=== PATIENT | male | born 1965 | race Caucasian/White ===

== ENCOUNTER 2022-02-17 12:01 | Inpatient (IN) | payer SELFPAY ==
[2022-02-17 12:29] LABS: #Lymphocytes 0.7 thou/uL (1.20-3.40); #Monocytes 1.1 thou/uL (0.11-0.59); #Neutrophils 10.6 thou/uL (1.40-6.50); %Basophils 0.1 % (0.0-1.0); %Lymphocytes 5.5 % (21.0-51.0); %Monocytes 9.1 % (0.0-10.0); %Neutrophils 85.3 % (42.0-75.0); Hemoglobin 16.5 g/dL (14.0-18.0); Mean Corpuscular HGB CONC 33.2 g/dL (32.0-36.0); Mean Corpuscular Hemoglobin 33.5 pg (27.0-31.0); Mean Platelet Volume 8.1 fL (7.4-10.4); Platelet Count 142 thou/uL (130-400); RBC Distribution Width 11.5 % (11.5-14.5); Red Blood Cell (RBC) Count 4.93 mill/uL (4.70-6.10); White Blood Cell (WBC) Count 12.4 thou/uL (4.8-10.8)
[2022-02-17 12:48] LABS: ALT (SGPT) 9 U/L (8-55); AST (SGOT) 17 U/L (5-34); Albumin 4.1 g/dL (3.5-5.0); Alkaline Phosphatase 67 U/L (40-110); Anion Gap 14 mmol/L (10-20); BUN (Urea Nitrogen) 18 mg/dL (8.4-25.7); Bilirubin, Total 0.8 mg/dL (0.2-1.2); Calc. Creatinine Clearance 0 mL/min (70-130); Calcium 8.6 mg/dL (7.8-10.44); Carbon Dioxide 22 mmol/L (22-29); Chloride 107 mmol/L (98-107); Globulin 2.6 g/dL (2.4-3.5); Glucose 105 mg/dL (70-105); Potassium 3.8 mmol/L (3.5-5.1); Protein, Total 6.7 g/dL (6.0-8.3); Sodium 139 mmol/L (136-145)
[2022-02-17] MEDS ORDERED: Ketorolac Tromethamine 30 MG/ML VIAL ONE (13:38)
[2022-02-17 13:54] LABS: Bacteria/HPF 4+ HPF (None Seen); Bilirubin Negative (Negative); Blood, Urine 3+ (Negative); Clarity Turbid (Clear); Glucose, Urine (Dipstick) Normal (Negative); Ketone, Urine 20 mg/dL (Negative); Leukocyte 500 Leu/uL (Negative); Nitrite Negative (Negative); Protein, Urine (Dipstick) 100 mg/dL (Neg-Trace); RBC/HPF Greater than 50 HPF (0-3); Specific Gravity, Urine 1.023 (1.002-1.036); Squamous Epithelial 0-3 HPF (0-3); Urobilinogen Normal mg/dL (Less than 2); WBC/HPF Greater than 50 HPF (0-3); pH, Urine 5.5 (5.0-9.0)
[2022-02-17] MEDS ORDERED: Ondansetron ODT 4 MG TAB PO PRN (15:35)
[2022-02-17] MEDS ORDERED: Ondansetron PF 4 MG/2 ML Vial IVP PRN (15:35)
[2022-02-17] MEDS ORDERED: Acetaminophen 325 MG TAB PO PRN (15:35)
[2022-02-17] MEDS ORDERED: Ketorolac Tromethamine 30 MG/ML VIAL IVP PRN (15:44)
[2022-02-17 17:04] LABS: SARS-CoV-2 NAA Rapid Test Not Detected (NotDetected)
[2022-02-17] MEDS ORDERED: Iopamidol 15 ML ONE (17:32)
[2022-02-17] MEDS ORDERED: fentaNYL Citrate/PF 100 MCG/2 ML SYRINGE ONE (17:59)
[2022-02-17] MEDS ORDERED: Lidocaine 1% PF 5 ML VIAL ONE (18:02)
[2022-02-17] MEDS ORDERED: PHENYLEPHRINE-NS 100 MCG/ML 10 ML SYRINGE ONE (18:02)
[2022-02-17] MEDS ORDERED: Dexamethasone 20 MG/5 ML VIAL ONE (18:02)
[2022-02-17] MEDS ORDERED: Ondansetron PF 4 MG/2 ML Vial ONE (18:02)
[2022-02-17] MEDS ORDERED: PROPOFOL 200 MG/20 ML VIAL ONE (18:02)
[2022-02-17] MEDS ORDERED: HYDROmorphone 2 MG/ML VIAL SLOW IVP PRN (18:52)
[2022-02-17] MEDS ORDERED: Promethazine HCl 25 MG/ML VIAL IVPB PRN (18:52)
[2022-02-17] MEDS ORDERED: Ondansetron HCl/PF 4 MG/2 ML Vial IVP PRN (18:52)
[2022-02-17] MEDS ORDERED: PACU-Morphine 4MG/ML VIAL SLOW IVP PRN (18:52)
[2022-02-17] MEDS ORDERED: Promethazine HCl 25 MG/ML VIAL IM PRN (18:52)
[2022-02-18 06:15] LABS: #Lymphocytes 0.6 thou/uL (1.20-3.40); #Monocytes 0.4 thou/uL (0.11-0.59); #Neutrophils 8.3 thou/uL (1.40-6.50); %Basophils 0.1 % (0.0-1.0); %Neutrophils 89.9 % (42.0-75.0); Hemoglobin 14.2 g/dL (14.0-18.0); Mean Corpuscular HGB CONC 33.6 g/dL (32.0-36.0); Mean Corpuscular Hemoglobin 33.7 pg (27.0-31.0); Mean Platelet Volume 8.1 fL (7.4-10.4); Platelet Count 144 thou/uL (130-400); RBC Distribution Width 11.4 % (11.5-14.5); Red Blood Cell (RBC) Count 4.21 mill/uL (4.70-6.10); White Blood Cell (WBC) Count 9.2 thou/uL (4.8-10.8)
[2022-02-18 06:58] LABS: ALT (SGPT) 9 U/L (8-55); AST (SGOT) 16 U/L (5-34); Albumin 3.7 g/dL (3.5-5.0); Alkaline Phosphatase 56 U/L (40-110); Anion Gap 13 mmol/L (10-20); BUN (Urea Nitrogen) 20 mg/dL (8.4-25.7); Bilirubin, Total 0.8 mg/dL (0.2-1.2); Calc. Creatinine Clearance 97 mL/min (70-130); Calcium 8.3 mg/dL (7.8-10.44); Carbon Dioxide 23 mmol/L (22-29); Chloride 106 mmol/L (98-107); Globulin 2.4 g/dL (2.4-3.5); Glucose 109 mg/dL (70-105); Potassium 3.9 mmol/L (3.5-5.1); Protein, Total 6.1 g/dL (6.0-8.3); Sodium 138 mmol/L (136-145)
[2022-02-18 12:24] VITALS: TEMP 97.4
[2022-02-18 17:33] VITALS: BP 106/67
== END 2022-02-18 18:13 | disposition home or self-care (01) | DRG 854 ==
LOC: ERS 12:01 → T4-A 18:45
PROVIDERS: ADMIT Family Medicine; ATTEND Family Medicine
PROC: 0T778DZ Dilation of Left Ureter with Intraluminal Device, Via Natural or Artificial Opening Endoscopic (ICD-10-PCS; principal; 2022-02-17)
DX: A41.9 Sepsis, unspecified organism (principal); N13.6 Pyonephrosis; Z20.822 Contact with and (suspected) exposure to COVID-19; R33.9 Retention of urine, unspecified; F17.210 Nicotine dependence, cigarettes, uncomplicated; E86.0 Dehydration; Z88.0 Allergy status to penicillin; Z88.1 Allergy status to other antibiotic agents; Z88.5 Allergy status to narcotic agent; Z79.899 Other long term (current) drug therapy; Z86.73 Personal history of transient ischemic attack (TIA), and cerebral infarction without residual deficits
CPT/HCPCS: 36415; 51701; 74176; 74420; 80053; 81003; 81015; 82340; 84145; 85025; 87040; 87077; 87086; 96365; 96375; C2617; J1100; J1885; J1956; J2405; J2704; Q9967; U0002

== ENCOUNTER 2022-03-16 09:27 | Day surgery (SDC) | payer OTHER ==
[2022-03-15 14:00] VITALS: BMI 24.0
[2022-03-16 11:22] LABS: SARS-CoV-2 NAA Rapid Test Not Detected (NotDetected)
[2022-03-16] MEDS ORDERED: Midazolam HCl 2 mg/2 ml Vial ONE ×2 (11:30→14:50)
[2022-03-16] MEDS ORDERED: fentaNYL Citrate/PF 100 MCG/2 ML SYRINGE ONE (11:30)
[2022-03-16] MEDS ORDERED: Iopamidol 30 ML ONE (11:42)
[2022-03-16] MEDS ORDERED: Levofloxacin 500 mg/D5W 100 ml Premix Bag ONE (12:11)
[2022-03-16] MEDS ORDERED: Ondansetron PF 4 MG/2 ML Vial ONE (12:24)
[2022-03-16] MEDS ORDERED: Dexamethasone 20 MG/5 ML VIAL ONE (12:24)
[2022-03-16] MEDS ORDERED: Glycopyrrolate 0.2 MG/ML 5 ML SYRINGE ONE (12:24)
[2022-03-16] MEDS ORDERED: EPINEPHrine 1 MG/10 ML Abboject SYRINGE ONE ×2 (12:24→14:47)
[2022-03-16] MEDS ORDERED: PHENYLEPHRINE-NS 100 MCG/ML 10 ML SYRINGE ONE (12:24)
[2022-03-16] MEDS ORDERED: Rocuronium Bromide 10 MG/ML (10ML VIAL) ONE (12:24)
[2022-03-16] MEDS ORDERED: PROPOFOL 200 MG/20 ML VIAL ONE (12:24)
[2022-03-16] MEDS ORDERED: Ketorolac Tromethamine 30 MG/ML VIAL ONE (12:24)
[2022-03-16] MEDS ORDERED: Lidocaine 1% PF 5 ML VIAL ONE (12:24)
[2022-03-16] MEDS ORDERED: Metoclopramide HCl 10 MG/2 ML VIAL ONE (12:24)
[2022-03-16] MEDS ORDERED: Racepinephrine 2.25% 0.5 ML NEB ONE (14:38)
[2022-03-16] MEDS ORDERED: Sodium Chloride For Inhalation 0.9% 3 ML NEB ONE (14:38)
[2022-03-16] MEDS ORDERED: Albuterol Sulfate 1.25 MG/3 ML NEB ONE (14:49)
[2022-03-16] MEDS ORDERED: Ketamine 50 MG/ML (10ML VIAL) ONE (14:50)
== END 2022-03-16 19:09 | disposition home or self-care (01) ==
LOC: SDC 09:27
PROVIDERS: ATTEND Urology
PROC: 0TC78ZZ Extirpation of Matter from Left Ureter, Via Natural or Artificial Opening Endoscopic (ICD-10-PCS; principal; 2022-03-16)
PROC: 0TC48ZZ Extirpation of Matter from Left Kidney Pelvis, Via Natural or Artificial Opening Endoscopic (ICD-10-PCS; principal; 2022-03-16)
PROC: 0T778DZ Dilation of Left Ureter with Intraluminal Device, Via Natural or Artificial Opening Endoscopic (ICD-10-PCS; principal; 2022-03-16)
PROC: 0TCB8ZZ Extirpation of Matter from Bladder, Via Natural or Artificial Opening Endoscopic (ICD-10-PCS; principal; 2022-03-16)
DX: N20.2 Calculus of kidney with calculus of ureter (principal); N21.0 Calculus in bladder; F17.210 Nicotine dependence, cigarettes, uncomplicated; Z86.73 Personal history of transient ischemic attack (TIA), and cerebral infarction without residual deficits; Z88.0 Allergy status to penicillin; Z88.1 Allergy status to other antibiotic agents; Z88.5 Allergy status to narcotic agent; Z20.822 Contact with and (suspected) exposure to COVID-19
CPT/HCPCS: 71045; 76000; C1713; C2617; J0171; J1100; J1885; J1956; J2250; J2405; J2704; J2765; J7620; Q9967; U0002

== ENCOUNTER 2023-07-08 00:26 | Inpatient (IN) | payer SELFPAY ==
[2023-07-08] MEDS ORDERED: fentaNYL 50 mcg/mL 1 mL Vial ONE (01:21)
[2023-07-08] MEDS ORDERED: Ondansetron PF 4 MG/2 ML Vial ONE ×2 (01:21→10:00)
[2023-07-08 01:22] LABS: #Eosinphils 0.1 thou/uL (0.0-0.7); #Monocytes 0.9 thou/uL (0.11-0.59); #Neutrophils 10.1 thou/uL (1.40-6.50); %Basophils 0.3 % (0.0-1.0); %Eosinophils 0.9 % (0.0-10.0); %Lymphocytes 10.5 % (21.0-51.0); %Monocytes 7.1 % (0.0-10.0); %Neutrophils 80.8 % (42.0-75.0); Hematocrit 44.6 % (42.0-52.0); Mean Corpuscular HGB CONC 33.6 g/dL (32.0-36.0); Mean Corpuscular Hemoglobin 33.3 pg (27.0-31.0); Mean Corpuscular Volume 98.9 fl (78.0-98.0); Mean Platelet Volume 10.8 fL (7.4-10.4); Platelet Count 156 10x3/uL (130-400); Red Blood Cell (RBC) Count 4.51 mill/uL (4.70-6.10); White Blood Cell (WBC) Count 12.5 10x3/uL (4.8-10.8)
[2023-07-08 01:51] LABS: ALT (SGPT) 13 U/L (8-55); AST (SGOT) 16 U/L (5-34); Albumin 4.4 g/dL (3.5-5.0); Alkaline Phosphatase 60 U/L (40-110); Anion Gap 18 mmol/L (10-20); BUN (Urea Nitrogen) 18 mg/dL (8.4-25.7); Bilirubin, Total 0.4 mg/dL (0.2-1.2); Calc. Creatinine Clearance 0 mL/min (70-130); Calcium 8.6 mg/dL (7.8-10.44); Carbon Dioxide 21 mmol/L (22-29); Chloride 106 mmol/L (98-107); Estimated GFR 55; Globulin 2.6 g/dL (2.4-3.5); Glucose 156 mg/dL (70-105); Lipase 31 U/L (8-78); Sodium 142 mmol/L (136-145)
[2023-07-08] MEDS ORDERED: Cefepime 2 GM VIAL ONE (03:18)
[2023-07-08 03:51] LABS: PTT 26.8 sec (22.9-36.1); Prothrombin Time 13.9 sec (12.0-14.7)
[2023-07-08 03:59] LABS: Bilirubin Negative (Negative); Blood, Urine Trace (Negative); CAUTI Indications for Culture < 2yrs of age; Clarity Clear (Clear); Glucose, Urine (Dipstick) Normal (Negative); Ketone, Urine Negative (Negative); Leukocyte 250 Leu/uL (Negative); Nitrite 2+ (Negative); Protein, Urine (Dipstick) 30 mg/dL (Neg-Trace); RBC/HPF 21-50 HPF (0-3); Specific Gravity, Urine 1.022 (1.002-1.036); Squamous Epithelial None Seen HPF (0-3); Urobilinogen Normal mg/dL (Less than 2); WBC/HPF Greater than 50 HPF (0-3); pH, Urine 6.5 (5.0-9.0)
[2023-07-08 04:00] LABS: Bacteria/HPF 1+ HPF (None Seen)
[2023-07-08 04:01] LABS: Urine Culture Reflex Yes Yes
[2023-07-08] MEDS ORDERED: Morphine 4 MG/ML VIAL ONE (04:21)
[2023-07-08 05:17] LABS: Lactic Acid 1.2 mmol/L (0.5-2.2)
[2023-07-08] MEDS ORDERED: Ondansetron PF 4 MG/2 ML Vial IVP PRN (07:24)
[2023-07-08] MEDS ORDERED: Morphine 4 MG/ML VIAL SLOW IVP PRN (07:24)
[2023-07-08] MEDS ORDERED: Acetaminophen 325 MG TAB PO PRN (07:24)
[2023-07-08] MEDS ORDERED: Ondansetron ODT 4 MG TAB PO PRN (07:24)
[2023-07-08 08:23] VITALS: BMI 22.3
[2023-07-08] MEDS ORDERED: Ondansetron HCl/PF 4 MG/2 ML Vial IVP PRN (09:25)
[2023-07-08] MEDS ORDERED: Promethazine HCl 25 MG/ML VIAL IM PRN (09:25)
[2023-07-08] MEDS ORDERED: HYDROmorphone 2 MG/ML VIAL SLOW IVP PRN (09:25)
[2023-07-08] MEDS ORDERED: fentaNYL PF 100 MCG/2 ML SYRINGE ONE (09:27)
[2023-07-08] MEDS ORDERED: Iopamidol 30 ML ONE (09:52)
[2023-07-08] MEDS ORDERED: Glycopyrrolate 0.2 MG/ML 5 ML SYRINGE ONE (10:00)
[2023-07-08] MEDS ORDERED: PROPOFOL 200 MG/20 ML VIAL ONE (10:00)
[2023-07-08] MEDS: Heparin 5,000 UNITS/ML VIAL SC SCH ×3 (10:43→20:41)
[2023-07-08] MEDS: Cefepime 2 GM in Sodium Chloride 0.9% 100 ML IVPB SCH (16:04)
[2023-07-08] MEDS: Morphine 2 MG/ML VIAL SLOW IVP PRN (20:42)
[2023-07-09] MEDS: Cefepime 2 GM in Sodium Chloride 0.9% 100 ML IVPB SCH (03:08)
[2023-07-09] MEDS: Morphine 2 MG/ML VIAL SLOW IVP PRN (05:35)
[2023-07-09 05:56] LABS: ALT (SGPT) 9 U/L (8-55); AST (SGOT) 15 U/L (5-34); Albumin 3.8 g/dL (3.5-5.0); Alkaline Phosphatase 63 U/L (40-110); Anion Gap 13 mmol/L (10-20); BUN (Urea Nitrogen) 19 mg/dL (8.4-25.7); Bilirubin, Total 0.8 mg/dL (0.2-1.2); Calc. Creatinine Clearance 54 mL/min (70-130); Calcium 8.8 mg/dL (7.8-10.44); Carbon Dioxide 23 mmol/L (22-29); Chloride 105 mmol/L (98-107); Estimated GFR 66; Globulin 2.6 g/dL (2.4-3.5); Glucose 92 mg/dL (70-105); Potassium 3.4 mmol/L (3.5-5.1); Protein, Total 6.4 g/dL (6.0-8.3); Sodium 138 mmol/L (136-145)
[2023-07-09] MEDS ORDERED: Potassium Chloride 20 MEQ TAB PO SCH (08:00)
[2023-07-09] MEDS ORDERED: Bisacodyl 10 MG SUPP PR SCH (08:45)
[2023-07-09] MEDS ORDERED: Magnesium Citrate 300 ML BOT PO SCH (08:45)
[2023-07-09] MEDS: Heparin 5,000 UNITS/ML VIAL SC SCH (09:35)
[2023-07-09] MEDS: Cefepime 1 GM in Sodium Chloride 0.9% 100 ML IVPB SCH (15:40)
[2023-07-10] MEDS: Cefepime 1 GM in Sodium Chloride 0.9% 100 ML IVPB SCH (02:29)
[2023-07-10 06:43] LABS: Hematocrit 39.1 % (42.0-52.0); Hemoglobin 13.2 g/dL (14.0-18.0); Mean Corpuscular HGB CONC 33.8 g/dL (32.0-36.0); Mean Corpuscular Hemoglobin 33.1 pg (27.0-31.0); RBC Distribution Width 11.9 % (11.5-14.5); Red Blood Cell (RBC) Count 3.99 mill/uL (4.70-6.10); White Blood Cell (WBC) Count 6.7 10x3/uL (4.8-10.8)
[2023-07-10 06:44] LABS: #Basophils 0.1 thou/uL (0.0-0.2); #Eosinphils 0.2 thou/uL (0.0-0.7); #Monocytes 0.8 thou/uL (0.11-0.59); #Neutrophils 4.5 thou/uL (1.40-6.50); %Basophils 0.7 % (0.0-1.0); %Eosinophils 2.5 % (0.0-10.0); %Monocytes 11.2 % (0.0-10.0); %Neutrophils 67.5 % (42.0-75.0); Mean Platelet Volume 10.5 fL (7.4-10.4); Platelet Count 129 10x3/uL (130-400)
[2023-07-10 08:50] LABS: Anion Gap 16 mmol/L (10-20); BUN (Urea Nitrogen) 19 mg/dL (8.4-25.7); CRP (Inflammatory) 13.82 mg/dL (= or < 0.5); Calc. Creatinine Clearance 73 mL/min (70-130); Calcium 8.7 mg/dL (7.8-10.44); Carbon Dioxide 21 mmol/L (22-29); Chloride 104 mmol/L (98-107); Estimated GFR 95; Glucose 62 mg/dL (70-105); Potassium 3.3 mmol/L (3.5-5.1); Sodium 138 mmol/L (136-145)
[2023-07-10] MEDS ORDERED: Ketorolac Tromethamine 30 MG/ML VIAL IVP PRN (13:34)
[2023-07-10] MEDS: Cefepime 2 GM in Sodium Chloride 0.9% 100 ML IVPB SCH (14:19)
[2023-07-10] MEDS: Sodium Chloride 0.9% 1,000 ML IV SCH (14:19)
[2023-07-11] MEDS: Cefepime 2 GM in Sodium Chloride 0.9% 100 ML IVPB SCH (02:13)
[2023-07-11] MEDS: Sodium Chloride 0.9% 1,000 ML IV SCH (04:45)
[2023-07-11 06:29] LABS: #Eosinphils 0.2 thou/uL (0.0-0.7); #Monocytes 0.6 thou/uL (0.11-0.59); #Neutrophils 3.2 thou/uL (1.40-6.50); %Basophils 0.6 % (0.0-1.0); %Eosinophils 4.2 % (0.0-10.0); %Lymphocytes 24.9 % (21.0-51.0); %Monocytes 11.6 % (0.0-10.0); %Neutrophils 58.5 % (42.0-75.0); Hematocrit 34.8 % (42.0-52.0); Hemoglobin 12.2 g/dL (14.0-18.0); Mean Corpuscular HGB CONC 35.1 g/dL (32.0-36.0); Mean Corpuscular Hemoglobin 33.8 pg (27.0-31.0); Mean Corpuscular Volume 96.4 fl (78.0-98.0); Mean Platelet Volume 10.8 fL (7.4-10.4); Platelet Count 137 10x3/uL (130-400); RBC Distribution Width 11.9 % (11.5-14.5); Red Blood Cell (RBC) Count 3.61 mill/uL (4.70-6.10); White Blood Cell (WBC) Count 5.4 10x3/uL (4.8-10.8)
[2023-07-11 07:04] LABS: Anion Gap 12 mmol/L (10-20); BUN (Urea Nitrogen) 16 mg/dL (8.4-25.7); CRP (Inflammatory) 5.75 mg/dL (= or < 0.5); Calc. Creatinine Clearance 78 mL/min (70-130); Calcium 8.4 mg/dL (7.8-10.44); Carbon Dioxide 24 mmol/L (22-29); Chloride 107 mmol/L (98-107); Estimated GFR 101; Glucose 70 mg/dL (70-105); Potassium 3.4 mmol/L (3.5-5.1); Sodium 140 mmol/L (136-145)
[2023-07-11] MEDS ORDERED: Sodium Chloride 0.9% 100 ML ONE (11:40)
[2023-07-11] MEDS: Vancomycin HCl 750 MG in Sodium Chloride 0.9% 250 ML 250 ML IVPB SCH ×2 (12:19→23:42)
[2023-07-11] MEDS ORDERED: VANCOMYCIN 1.75 GM/500 ML BAG 1.75 GM in Premix Bag 1 BAG IVPB SCH (21:00)
[2023-07-12 07:03] LABS: #Eosinphils 0.2 thou/uL (0.0-0.7); #Monocytes 0.5 thou/uL (0.11-0.59); #Neutrophils 2.9 thou/uL (1.40-6.50); %Basophils 0.6 % (0.0-1.0); %Eosinophils 3.9 % (0.0-10.0); %Lymphocytes 27.8 % (21.0-51.0); %Monocytes 10.1 % (0.0-10.0); Hematocrit 35.4 % (42.0-52.0); Hemoglobin 12.6 g/dL (14.0-18.0); Mean Corpuscular HGB CONC 35.6 g/dL (32.0-36.0); Mean Corpuscular Hemoglobin 33.2 pg (27.0-31.0); Mean Corpuscular Volume 93.4 fl (78.0-98.0); Mean Platelet Volume 10.6 fL (7.4-10.4); Platelet Count 153 10x3/uL (130-400); RBC Distribution Width 11.9 % (11.5-14.5); Red Blood Cell (RBC) Count 3.79 mill/uL (4.70-6.10); White Blood Cell (WBC) Count 5.1 10x3/uL (4.8-10.8)
[2023-07-12 07:29] LABS: Anion Gap 12 mmol/L (10-20); BUN (Urea Nitrogen) 10 mg/dL (8.4-25.7); Calc. Creatinine Clearance 84 mL/min (70-130); Calcium 8.4 mg/dL (7.8-10.44); Carbon Dioxide 27 mmol/L (22-29); Chloride 105 mmol/L (98-107); Estimated GFR 103; Glucose 72 mg/dL (70-105); Potassium 3.1 mmol/L (3.5-5.1); Sodium 141 mmol/L (136-145)
[2023-07-12] MEDS ORDERED: Potassium Chloride 20 MEQ TAB PO SCH (11:00)
[2023-07-12 12:19] VITALS: BP 121/77; TEMP 97.9
[2023-07-12] MEDS: Vancomycin HCl 750 MG in Sodium Chloride 0.9% 250 ML 250 ML IVPB SCH (13:03)
== END 2023-07-12 16:12 | disposition home or self-care (01) | DRG 854 ==
LOC: ERS 00:26 → T4-B 05:15 → OBSVTOIN 07-09 15:09 → T4-A 07-09 16:09 → T4-B 07-09 16:10
PROVIDERS: ADMIT Family Medicine; ATTEND Hospitalist
PROC: 3E03329 Introduction of Other Anti-infective into Peripheral Vein, Percutaneous Approach (ICD-10-PCS; 2023-07-08)
PROC: 0T768DZ Dilation of Right Ureter with Intraluminal Device, Via Natural or Artificial Opening Endoscopic (ICD-10-PCS; principal; 2023-07-09)
PROC: BT1D1ZZ Fluoroscopy of Right Kidney, Ureter and Bladder using Low Osmolar Contrast (ICD-10-PCS; 2023-07-09)
DX: A41.2 Sepsis due to unspecified staphylococcus (principal); N13.6 Pyonephrosis; N17.9 Acute kidney failure, unspecified; K59.00 Constipation, unspecified; K40.90 Unilateral inguinal hernia, without obstruction or gangrene, not specified as recurrent; E87.6 Hypokalemia; I25.2 Old myocardial infarction; Z88.0 Allergy status to penicillin; Z88.5 Allergy status to narcotic agent; Z88.1 Allergy status to other antibiotic agents; Z79.899 Other long term (current) drug therapy; Z98.890 Other specified postprocedural states; R33.9 Retention of urine, unspecified; Z86.73 Personal history of transient ischemic attack (TIA), and cerebral infarction without residual deficits; F17.210 Nicotine dependence, cigarettes, uncomplicated
CPT/HCPCS: 36415; 74176; 74420; 80048; 80053; 81001; 83605; 83690; 85025; 85610; 85730; 86140; 87040; 87077; 87086; 87186; 93005; 93010; C2617; J0692; J1644; J1650; J2270; J2272; J2405; J2704; J3010; J3370; J3490; J7050; Q9967

== ENCOUNTER 2023-07-31 12:03 | Day surgery (SDC) | payer SELFPAY ==
[2023-07-30 13:52] VITALS: BMI 23.1
[2023-07-31] MEDS ORDERED: fentaNYL PF 100 MCG/2 ML SYRINGE ONE (14:35)
[2023-07-31] MEDS ORDERED: Dexmedetomidine 200 MCG/2 ML VIAL ONE (14:47)
[2023-07-31] MEDS ORDERED: Ondansetron PF 4 MG/2 ML Vial ONE (15:07)
[2023-07-31] MEDS ORDERED: ePHEDrine Sulfate 50 MG/10 ML VIAL ONE (15:07)
[2023-07-31] MEDS ORDERED: Dexamethasone 20 MG/5 ML VIAL ONE (15:07)
[2023-07-31] MEDS ORDERED: Lidocaine 1% PF 5 ML VIAL ONE (15:07)
[2023-07-31] MEDS ORDERED: PROPOFOL 200 MG/20 ML VIAL ONE (15:07)
[2023-07-31] MEDS ORDERED: LevoFLOXacin 500 mg/D5W 100 ML BAG ONE (15:13)
[2023-07-31] MEDS ORDERED: Iopamidol 15 ML ONE (15:26)
== END 2023-07-31 18:02 | disposition home or self-care (01) ==
LOC: SDC 12:03
PROVIDERS: ATTEND Urology
PROC: 0TF68ZZ Fragmentation in Right Ureter, Via Natural or Artificial Opening Endoscopic (ICD-10-PCS; principal; 2023-07-31)
PROC: 0TH98YZ Insertion of Other Device into Ureter, Via Natural or Artificial Opening Endoscopic (ICD-10-PCS; principal; 2023-07-31)
DX: N20.1 Calculus of ureter (principal); Z88.0 Allergy status to penicillin; Z88.1 Allergy status to other antibiotic agents; Z88.5 Allergy status to narcotic agent
CPT/HCPCS: 74420; 88300; C1747; C2617; J1100; J1956; J2405; J2704; Q9967